=== PATIENT | male | born 1980 | race Caucasian/White ===

== ENCOUNTER 2020-09-13 14:00 | Outpatient (REF) | payer OTHER, SELFPAY ==
[2020-09-13 14:56] LABS: Alanine Aminotransferase 95 U/L (0-40); Albumin Level 4.7 g/dL (3.5-5.0); Alkaline Phosphatase 63 U/L (39-117); Aspartate Amino Transferase 56 U/L (5-37); Bilirubin Direct 0.2 mg/dL (0.0-0.5); Bilirubin Total 0.6 mg/dL (0.0-1.0); Rheumatoid Factor < 15.0 IU/mL (<15.0); Total Protein 7.3 g/dL (6.5-8.0)
[2020-09-13 15:44] LABS: Erythrocyte Sedimentation Rate 2 MM/HR (0-15)
[2020-09-18 22:47] LABS: Anti Nuclear Antibody Screen POSITIVE (NEGATIVE)
== END 2020-09-13 14:01 | disposition home or self-care (01) ==
LOC: HO.LAB 14:00
PROVIDERS: PCP Internal Medicine; Visit Provider Psychiatry & Neurology Neurology
DX: M79.606 Pain in leg, unspecified (principal)
CPT/HCPCS: 36415; 80076; 82550; 85652; 86038; 86039; 86431

== ENCOUNTER 2025-01-24 15:22 | Emergency (ER) | payer OTHER, SELFPAY ==
--- NOTE | ~2025-01-24 | XR_ITS ---
EXAMINATION: XR KNEE, RIGHT CLINICAL INFORMATION: pain, injury COMPARISON: None available. TECHNIQUE: Four views of the right knee. FINDINGS: There is mild narrowing of the medial joint space and minute marginal osteophytes in the 3 compartments of the knee. Small amount joint fluid is evident. No fractures are identified. XR/XR knee RT 3V IMPRESSION: Mild osteoarthritis Electronically signed by: Shaun Yip MD 01/24/2025 04:08 PM EDT
[2025-01-24 15:36] VITALS: BP 126/61; PULSE 103; RESP 20; TEMP 36.4; O2SAT 96; BMI 37.0
--- NOTE | 2025-01-24 15:36 | ED.GENADULT ---
HPI - General Adult General Chief complaint: Extremity Injury, Lower Stated complaint: rt knee injury Time Seen by Provider: 01/24/25 18:05 Related Data Allergies Allergy/AdvReac Type Severity Reaction Status Date / Time SEASONAL ALLERGIES Allergy Unknown STUFFY NOSE Uncoded 01/24/25 15:38 PMFSH Social History Social History Advance Directives: No Advance Directives Information Provided: No Physical Exam ED Vital Signs: Vital Signs - 24 hr 01/24/25 15:36 Temperature 97.5 F Pulse Rate 103 H Respiratory Rate 20 Blood Pressure 126/61 Pulse Oximetry 96 BMI result Body Mass Index 37.0 Course Course Course Narrative: Rapid medical examination performed in triage by Cindy Garcia PA-C. Patient is a 44 year old assigned male at presenting to the emergency department with right knee pain. Detailed physical exam and review of systems are deferred to the principal system software engineer. Imaging ordered. Patient placed back in the waiting room pending room availability and results. Patient left the department without completing treatment. Patient left the department before myself or any of the other clinicians could review his test results, recommend further testing, or discuss a treatment plan. Patient's limited physical exam performed in triage showed an individual in a wheel chair, holding crutches, non-toxic appearing - no shortness of breath / difficulty breathing, AO, able to speak complete sentences. Discharge Plan Discharge Clinical Impression: Acute knee pain Patient Disposition: Left W/O Completing Treatment
--- OUTSIDE RECORDS SUMMARY | 2025-01-24 18:59 | XMS_ITS | Clinical Summary ---
Author Organization [facility] [address] [facility] Address [address] [place] [address] Phone Care Team Providers Care [employer] Name Role Phone Kristie Mann MD Primary Care Prov ider Allergies No known active allergies Medications valACYclovir (VALTREX) 500 mg tablet Take 250 mg by mouth 1 (one) time each day. Getting Rx online resource for HSV Active lidocaine (LIDODERM) 5 % patchIndications :Chronic bilateral low back pain with sciatica, sciatica laterality unspecified Apply 1 patch topically 1 (one) time each day. Remove & discard patch within 12 hours or as directed by . 10 patch 5 Active simvastatin (ZOCOR) 20 mg tablet TAKE 1 TABLET BY MOUTH EVERYDAY AT BEDTIME 180 tablet 5 Active lisinopril-hydro CHLOROthiazide (PRINZIDE,ZESTOR ETIC) 10-12.5 mg per tablet TAKE 1 TABLET BY MOUTH EVERY DAY 90 tablet 5 Active Active Problems Problem Noted Date Diagnosed Date Elevated LFTs 04/22/2024 Cocaine use 04/21/2024 Marijuana use 04/21/2024 Overview (04/21/2024): gummies Obesity (BMI 30-39.9) 04/21/2024 Vapes nicotine containing substance 04/21/2024 Class 2 obesity due to exces s calories without serious comorbidity with body mass index (BMI) of 37.0 to 37.9 in adult 03/02/2024 Herpes simplex infection of penis 05/08/2021 Personal history of COVID-19 05/08/2021 Overview (10/18/2024): 04/17/2021 Genital HSV 11/13/2020 Hepatic steatosis 12/17/2018 Abnormal liver enzymes 09/15/2018 Insomnia 10/10/2015 Alcohol abuse 11/04/2013 Hyperlipidemia 09/15/2013 Anxiety 02/03/2012 Severe obesity (BMI 35.0-39. 9) with comorbidity (CMS/HCC V24, CMS/HCC V28) 01/10/2011 Back pain 07/03/2010 HTN (hypertension) 04/04/2009 Immunizations Name Administration Dates Next Due Influenza trivalent, with preservative (Fluzone; Afluria) 6mo and older 03/20/2015,03/28/2014,03/04/2013,2011,04/09/2010 Tdap Tetanus diptheria acell ular pertussis (Boostrix; Adacel) 7yo and older 08/27/2011 Surgical History Surgery Date Site/Laterality Comments TONSILLECTOMY PROCEDURE: HISTORICAL TONSILLECTOMY NASAL SEPTUM SURGERY Medical History Medical History Date Comments HTN (hypertension) 04/04/2009 DX:HTN (hyper tension) Back pain 07/03/2010 DX:Back pain Obesity 01/10/2011 DX:Obesity Depression 02/03/2012 DX:Depression Hyperlipidemia 09/15/2013 DX:Hyperlipidemi a Family History Medical History Relation Name Comments Heart attack Aunt 1 of [place] age 48 ALS Aunt 2 maternal Diabetes Father Other: coronary artery disease Father quadruple bypass early 50s Other cancer Maternal Grandmother Uncerta in type ALS Mother passed at 63 Other cancer Uncle 1 Leukemia ALS Uncle 2 maternal Relation Name Status Comments Aunt 1 Aunt 2 Brother Alive hyperlipidemia Father Diabetes, coron shahzad artery disease late 40's Maternal Grandmother Mother als Uncle 1 Uncle 2 Social History Tobacco Use Types Packs/Day Years Used Date Smoking Tobacco: Every Day Smokeless Tobacco: Never Tobacco Cessation:Ready to Q uit: Not Asked; Counseling Given: Not Answered Comments:Vapes daily, nicotine Alcohol Use Standard Drinks/Week Comments Yes 10 (1 standard drink = 0.6 oz pu re alcohol) Housing Instability Answer Date Recorde d Are you worried that in the next 2 months you may not have stable housing? No 04/20/2024 Food Access & Nutrition Answer Date Rec orded Do you have access to a vari ety of food including fruits and vegetables? Yes 04/20/2024 Access to Healthcare Answer Date Record ed Within the last 3 months, ho w many times did you visit the emergency department for your medical care? 0 04/20/2024 Health Literacy Answer Date Recorded How often do you need to hav e someone help you when you read instructions, pamphlets, or other written material from your doctor or pharmacy? Never 04/20/2024 Caregiver: How often do you need to have someone help you when you read instructions, pamphlets, or other written material from your doctor or pharmacy? Not on file 04/20/2024 Financial Risk Answer Date Recorded How hard is it for you to pa y for the very basics like food, housing, medical care, and air conditioning / heating? Patient declined 04/20/2024 Transportation Answer Date Recorded Has the lack of transportati on kept you from meetings, work, or from getting things needed for daily living? No Has the lack of transportati on kept you from medical appointments or from getting medications? No 04/20/2024 Social Isolation Answer Date Recorded How often do you feel lonely or isolated from th ose around you? Rarely 04/20/2024 Food Risk Answer Date Recorded Within the past 12 months we worried whether our food would run out before we got money to buy more. Never true 04/20/2024 Within the past 12 months th e food we bought just didn't last and we didn't have money to get more. Never true 04/20/2024 Dependent Care Answer Date Recorded Do you need help finding or paying for care for your loved ones. For example, child & adolescent psychiatrist or elderly care for an older adult? No 04/20/2024 Education Answer Date Recorded Do you think completing more education or training, like finishing a GED, going to college, or learning a trade, would be helpful for you? No 04/20/2024 Employment and Income Answer Date Recor ded During the last four weeks, have you been actively looking for work? No 04/20/2024 Living Situation Answer Date Recorded What is your living situation? 1 06/21/2023 Sex and Gender Information Value Date Recorded Sex Assigned at Not on file Legal Sex Male 9:55 AM EST Gender Identity Not on file Sexual Orientation Not on file Obstetrics History Last Filed Vital Signs Vital Sign Reading Time Taken Comments Blood Pressure 136/79 10/18/2024 12:24 PM EDT Pulse 92 10/18/2024 12:24 PM EDT Temperature 36.2 C (97.2 F) 10/18/2024 12:24 PM EDT Respiratory Rate 16 10/18/2024 12:24 PM EDT Oxygen Saturation - - Inhaled Oxygen Concentration - - Weight 120 kg (265 lb 9.6 oz) 10/18/2024 12:24 P M EDT Height 180.3 cm (5' 11 ) 10/18/2024 12:24 PM EDT Body Mass Index 37.04 10/18/2024 12:24 PM EDT Plan of Treatment Health Maintenance Due Date Last Done Comments Hepatitis A Vaccines (1 of 2 - Risk 2-dose series) 11/06/1998 Hepatitis B Vaccines (1 of 3 - 19+ 3-dose series) 11/06/1998 DTaP,Tdap,and Td Vaccines (2 - Td or Tdap) 08/26/2021 08/27/2011 Colorectal Cancer Screening: Colonoscopy 04/27/2022 Influenza Vaccine (#1) 2025 5, 03/28/2014, 03/04/2013, Additional history exists Social Influencers of Health Screening 04/20/2025 04/20/2024 Hypertension/CHF/CAD Annual BMP Blood Test 04/21/2025 04/21/2024, 07/29/2023 Cholesterol Screening (Lipid Panel) 04/21/2029 04/21/2024, 07/29/2023 COVID-19 Vaccine Discontinued 02/12/2021, 01/15/2021 Depression Screening Completed 10/18/2024, 07/29/19 HIV Screening Completed 10/18/2024, 08/2023, 05/08/2017 Hepatitis C Screening Completed 10/18/2024 , 04/21/2024, 05/08/2017 HIB Vaccines Aged Out No longer eligi ble based on patient's age to complete this topic HPV Vaccines Aged Out No longer eligi ble based on patient's age to complete this topic IPV Vaccines Aged Out No longer eligi ble based on patient's age to complete this topic MMR Vaccines Aged Out No longer eligi ble based on patient's age to complete this topic Meningococcal ACWY Vaccine Aged Out N o longer eligible based on patient's age to complete this topic Meningococcal B Vaccine Aged Out No l onger eligible based on patient's age to complete this topic Pneumococcal Vaccine: Pediatrics (0 to 5 Years) and At-Risk Patients (6 to 49 Years) Discontinued RSV Immunization Patients Under 20 months Aged Out No longer eligible based on patient's age to complete this topic Varicella Vaccines Aged Out No longer eligible based on patient's age to complete this topic Procedures Procedure Name Priority Date/Time Associated Diagnosis Comments HEPATITIS C ANTIBODY Routine 10/18/2024 1:15 PM EDT Screen for STD (sexually transmitted disease) HIV 1, 2 ANTIBODY, P24 ANTIGEN WITH REFLEX TO DIFFERENTIATION Routine 10/18/2024 1:15 PM EDT Screen for STD (sexually transmitted disease) COMPREHENSIVE METABOLIC PANEL Routine 04/21/2024 4:15 PM EST Adult general medical examination LIPID PANEL WITH REFLEX TO DIRECT LDL Routine 04/21/2024 4:15 PM EST Adult general medical examination HM DEPRESSION SCREENING Routine 07/29/2023 from Last 3 Months or Most Recently Relevant to Health Maintenance Results * Hepatitis C antibody (10/18/2024 1:15 PM EDT) Hepatitis C Antibody Negative Negative LAB CHEMISTRY METHOD 10/18/2024 6:52 PM EDT [facility] Blood Venous blood specimen / Unknown Venipuncture / Unknown 10/18/2024 1:15 PM EDT 10/18/2024 1:15 PM EDT us Rain Gaurang REYES LAB BLOOD ORDERABLES Final Resul t [facility] [address] [place] [address], [place] [phone] * HIV 1,2 antibody, p24 antigen with reflex to differentiation (10/18/2024 1:15 PM EDT) [facility] HIV Combo AB/AG Negative Negative LAB CHEMISTRY METHOD 10/18/2024 6:53 PM EDT [facility] Blood Venous blood specimen / Unknown Venipuncture / Unknown 10/18/2024 1:15 PM EDT 10/18/2024 1:15 PM EDT Narrative [facility] - 10/18/2024 6:53 PM EDT This assay is a 4th generation assay allowing for earlier detection of HIV infection by detecting the presence of the HIV-1 p24 antigen as well as the traditional antibodies to HIV type 1 (including group O) and type 2. Use of a 4th generation assay is the current CDC recommendation for HIV screening. us Rain REYES LAB BLOOD ORDERABLES Final Resul t [facility] [address] [place] [address], [place] [phone] * (ABNORMAL) Lipid panel with reflex to direct LDL (04/21/2024 4:15 PM EST) [facility] Cholesterol 147 0 - 200 mg/dL LAB CHEMISTRY METHOD 04/21/2024 7:19 PM [facility] Triglycerides 231(H) 0 - 150 mg/dL LAB CHEMISTRY METHOD 04/21/2024 7:19 PM [facility] HDL 19(L) >=40 mg/dL LAB CHEMISTRY METHOD 04/21/2024 7:19 PM EST [facility] LDL Calculated 82 0 - 100 mg/dL LAB CHEMISTRY METHOD 04/21/2024 7:19 PM [facility] VLDL Cholesterol Alfredo 46.2 mg/dL LAB CHEMISTRY METHOD 04/21/2024 7:19 PM [facility] Non HDL Chol. (LDL+VLDL) 128 <145 mg/dL LAB CHEMISTRY METHOD 04/21/2024 7:19 PM [facility] Chol/HDL Ratio 7.7(H) 0.0 - 4.4 LAB CHEMISTRY METHOD 04/21/2024 7:19 PM [facility] Blood Venous blood specimen / Unknown Venipuncture / Unknown 04/21/2024 4:15 PM EST 04/21/2024 4:15 PM EST us Shonna REYES LAB BLOOD ORDERABLES Final Resul t [facility] [address] [place] [address], [place] [phone] * (ABNORMAL) Comprehensive metabolic panel (04/21/2024 4:15 PM EST) Sodium 138 133 - 145 mmol/L LAB CHEMISTRY METHOD 04/21/2024 7:35 PM [facility] Potassium 4.5 3.5 - 5.5 mmol/L LAB CHEMISTRY METHOD 04/21/2024 7:35 PM [facility] Chloride 104 96 - 110 mmol/L LAB CHEMISTRY METHOD 04/21/2024 7:35 PM [facility] CO2 28 21 - 32 mmol/L LAB CHEMISTRY METHOD 04/21/2024 7:35 PM [facility] Anion Gap 6 3 - 11 LAB CHEMISTRY METHOD 04/21/2024 7:35 PM [facility] Glucose 99 70 - 100 mg/dL LAB CHEMISTRY METHOD 04/21/2024 7:35 PM [facility] BUN 10 5 - 25 mg/dL LAB CHEMISTRY METHOD 04/21/2024 7:35 PM [facility] Creatinine 0.91 0.70 - 1.30 mg/dL LAB CHEMISTRY METHOD 04/21/2024 7:35 PM [facility] eGFR 107 >=60 mL/min/1. 73m2 LAB CHEMISTRY METHOD 04/21/2024 7:35 PM [facility] Comment:Calculation based on the Chronic Kidney Disease Epidemiology Collaboration (CKD-EPI) equation refit without adjustment for race. BUN/Creatinine Ratio 11.0 LAB CHEMISTRY METHOD 04/21/2024 7:35 PM [facility] Calcium 9.8 8.5 - 10.5 mg/dL LAB CHEMISTRY METHOD 04/21/2024 7:35 PM [facility] AST (SGOT) 172(H) 10 - 42 unit/L LAB CHEMISTRY METHOD 04/21/2024 7:35 PM [facility] ALT (SGPT) 254(H) 10 - 60 unit/L LAB CHEMISTRY METHOD 04/21/2024 7:35 PM [facility] Alkaline Phosphatase 63 42 - 121 unit/L LAB CHEMISTRY METHOD 04/21/2024 7:35 PM [facility] Total Protein 7.3 6.0 - 8.0 g/dL LAB CHEMISTRY METHOD 04/21/2024 7:35 PM [facility] Albumin 4.4 3.2 - 5.0 g/dL LAB CHEMISTRY METHOD 04/21/2024 7:35 PM [facility] Total Bilirubin 0.5 0.0 - 1.4 mg/dL LAB CHEMISTRY METHOD 04/21/2024 7:35 PM [facility] Blood Venous blood specimen / Unknown Venipuncture / Unknown 04/21/2024 4:15 PM EST 04/21/2024 4:15 PM EST us Shonna REYES LAB BLOOD ORDERABLES Final Resul t [facility] [address] [place] [address], * Depression Screening (07/29/2023) Depression Screening abstracted us Historical Provider HEALTH MAINTENANCE Final Result from Last 3 Months or Most Recently Relevant to Health [place] [id number] [facility] PLANS Care Teams 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
--- OUTSIDE RECORDS SUMMARY | 2025-01-24 18:59 | XMS_ITS ---
Author Name [facility] Organization Unknown Care Team Organization Name Specialty Phone Email Start Date End Da te [facility] Kristie Cook Primary Care 09/23/2022 01/05/2024 [facility] CHASE LEON Primary Care 07/24/2022 01/05/20 [facility] Ching Dutton Primary Care 03/26/2022 01/05/20
== END 2025-01-24 19:43 | disposition left against medical advice (07) ==
PROVIDERS: Emergency Provider Emergency Medicine; PCP Internal Medicine
DX: M25.561 Pain in right knee (principal)
CPT/HCPCS: 73562; 99281; 99283

== ENCOUNTER → 2025-01-24 15:37 | Outpatient (BNV) | payer OTHER, SELFPAY | PROVIDERS: Visit Provider Radiology Diagnostic Radiology | DX: S89.90XA Unspecified injury of unspecified lower leg, initial encounter (principal); M25.561 Pain in right knee | CPT/HCPCS: 73562 ==